=== PATIENT | male | born 1940 | race Caucasian/White ===

== ENCOUNTER 2018-12-04 17:17 | Inpatient (IN) ==
[2018-12-04] MEDS ORDERED: Naloxone 0.4 MG/ML INJ IVP PRN (23:32)
--- NOTE | 2018-12-04 23:38 | Internal Med History&Physical ---
<Gigi Sultana - Last Filed: 12/05/18 05:47> Date of Encounter: 12/05/18 Time of Encounter: 23:38 Internal Medicine - H&P: HPI Chief complaint: blood per rectum History of present illness: Mr. Sam is a 78 year old male who presented to [facility] as a transfer from [facility] on 12/04/18. Initially presented to [facility] ED after a bloody bowel movement after his dialysis session. Reported multiple episodes, and stated that he was unsure if it was bright or dark red in color. He reported associated nausea and one episode of vomiting, and is unsure of what the vomit looked like. He denies any history of rectal bleeding or other GI bleed in the past. He is not currently on any blood thinners. He has never had a colonoscopy. Denied associated rectal or abdominal pain. On arrival to [facility], vital signs were significant for a HR of 114 and a BP of 104/79. EKG showed atrial fibrillation with PVC and left anterior fascicular block. Labs showed a Hgb of 5.1, Na+ 142, K+ 5.1, Ca++ 7.7, Cr 5.40, albumin 2.6. Patient was typed and crossed, and 2U of pRBCs were ordered at [facility]. He was found to be hypotensive with systolic BP in the 70s. He was also given a one-time dose of pantoprazole 40 mg IV. Patient was then transferred to [facility] for further management. On arrival to [facility], labs showed Hgb 6.4, Cr 5.95, troponin 0.04. Type and screen was ordered, as well as 2U pRBCs. A repeat CBC and BMP were drawn later, which showed a drop in Hgb of 6.0. However, it was noted that the K+ had dropped from 5.0 to 2.5. Due to these inconsistencies, I ordered a stat CBC and BMP after his results return. Hgb was found to be 6.7. Patient is still not received blood. Will receive transfusion after type and screen is complete. I had ordered a CT abd/pelv, but patient adamantly refused, stating that the CT makes him claustrophobic. He was offered medication to help with his anxiety, and again adamantly refused. He denies abdominal pain, fever, chills, nausea, vomiting. He has had one bowel movement since his admission, which she states contained a mild amount of blood. No further complaints. Will consult GI for possible scope in the a.m. Medical Hx: HTN, DM, atrial fibrillation, RCC with right-sided nephrectomy in 1999, ESRD on HD MWF Family Hx: HTN Past Med Surg Social Fam HX - Past Medical History Medical history: atrial fibrillation, DVT, diabetes, hyperlipidemia Additional medical history: anemia Psychiatric history: no psych history - Past Surgical History Surgical History: carotid endarterectomy, knee replacement Additional surgical history: Nephrectomy - Social History Smoking Status: Never smoker Smokeless Tobacco Status: No Alcohol use: none Drug use: none - Family History Father Cause of : stomach cancer Mother Cause of : stroke Internal Medicine - H&P: Meds Allergy/AdvReac Type Severity Reaction Status Date / Time No Known Allergies Allergy Verified 12/05/18 15:25 All Systems PM: A 10-system review of systems was performed and is negative for pertinent findings except as documented above in the HPI. - Constitutional Vitals: Temp Pulse Resp BP Pulse Ox 98.6 F 108 19 109/86 100 12/04/18 21:45 12/04/18 22:01 12/04/18 21:45 12/04/18 21:45 12/04/18 21:45 Exam: General: A&O X3, conversant, obese, appears somewhat irritable Head: atraumatic, normocephalic Eye: PERRL, EOMI Neck: Supple, trachea midline Respiratory: CTAB. No accessory muscle use, wheezes, rales, or rhonchi Cardiovascular: tachycardia, irregular rhythm; +S1, +S2; no murmurs, rubs, gallops Abdomen: Soft, nontender, nondistended Extremities: chronic skin changes on b/l lower extremities, L>R Neurological: CN II-XII intact Psychiatric: Normal affect, normal mood Skin: Dry, intact Internal Med - H&P Results - Labs CBC & Chem 7: 12/05/18 02:08 12/05/18 02:08 - Assessment and Plan (1) Acute blood loss anemia Status: Acute Assessment and plan: - Patient presented to [facility] after experiencing a bloody bowel movement - Etiology/location unknown at this time - No prior episodes of GI bleeding - Patient is not sure if his blood was dark or bright red - Received 2U pRBCs at [facility] - Of note, when patient arrived to [facility], I had ordered a CT abd/pelv; patient r efused CT scan due to claustrophobia; was offered medication for anxiety, but again refused Plan - NPO diet - 2U pRBCs have been ordered - Will obtain serial H/H and transfuse as necessary - GI consulted for endoscopy (2) ESRD (end stage renal disease) on dialysis Status: Acute Assessment and plan: - Known history of ESRD MWF - Nephrology consulted (3) Hypertension Status: Acute Assessment and plan: - Holding antihypertensives in the setting of hypotension due to acute blood loss anemia Qualifiers: Qualified Code(s): I10 - Essential (primary) hypertension (4) Diabetes Status: Acute Assessment and plan: - SSI Qualifiers: Qualified Code(s): E11.9 - Type 2 diabetes mellitus without complications (5) Elevated troponin Status: Acute Assessment and plan: - Troponin elevated at 0.04 on presentation - Likely elevated in the setting of demand ischemia and ESRD - Denies active chest pain; no ischemic ST changes seen on EKG - Repeat troponin level ordered to ensure it is adynamic (6) DVT prophylaxis Status: Acute Assessment and plan: - SCDs - Hold heparin in the setting of GI bleed - Time Spent With Patient Total time spent is greater than 50% in coordination of care (as documented) at patient's floor/unit and/or counseling patient: <Sharon Malik - Last Filed: 12/11/18 06:17> Internal Medicine - H&P: HPI History of present illness: Mr. Sam is a 78 year old male All Systems PM: A 10-system review of systems was performed and is negative for pertinent findings except as documented above in the HPI. - Constitutional Vitals: Temp Pulse Resp BP Pulse Ox 97.9 F 99 18 128/85 100 12/07/18 07:29 12/07/18 07:29 12/07/18 07:29 12/07/18 07:29 12/07/18 07:29 Internal Med - H&P Results - Labs CBC & Chem 7: 12/07/18 05:26 12/07/18 05:26 - Impressions ITS Impressions Abdomen/Pelvis CT 12/05/18 01:53 IMPRESSION: 1. No evidence of hematoma or site of hemorrhage 2. Possible cirrhosis 3. Small amount of ascites 4. Perivesical fat stranding suggests possible cystitis 5. Status post right nephrectomy D/ / Kingsley Burr MD / Kingsley Burr MD Interpreting Provider: Kingsley Burr MD - Assessment and Plan (1) Acute blood loss anemia Status: Acute (2) ESRD (end stage renal disease) on dialysis Status: Acute (3) Hypertension Status: Acute Qualifiers: Qualified Code(s): I10 - Essential (primary) hypertension (4) Diabetes Status: Acute Qualifiers: Qualified Code(s): E11.9 - Type 2 diabetes mellitus without complications (5) DVT prophylaxis Status: Acute - Time Spent With Patient Total time spent is greater than 50% in coordination of care (as documented) at patient's floor/unit and/or counseling patient: - Attending Attestation The patient was seen on 12/04 I performed a history and physical examination of the patient and discussed his management with the resident. I reviewed the residents note and agree with the documented findings and plan of care.
[2018-12-05] MEDS: 0.9 % Sodium Chloride 1,000 ML IVC SCH ×2 (00:09→09:38)
[2018-12-05 00:12] LABS: Basophils % 0.3 %; Eosinophils # 0.4 K/mcL (0.0-0.6); Eosinophils % 4.5 %; Hematocrit 19.7 % (37.5-50.1); Hemoglobin 6.4 g/dL (12.9-16.9); Immature Granulocytes % 0.6 % (0-4); Lymphocytes # 1.6 K/mcL (0.6-4.6); Lymphocytes % 17.8 %; Mean Corpuscular HGB Conc 32.5 g/dL (31.6-35.5); Mean Corpuscular Hemoglobin 29.5 pg (28.0-33.3); Mean Corpuscular Volume 90.8 fL (83.0-100.0); Mean Platelet Volume 9.6 fL (9.4-12.4); Monocytes # 0.9 K/mcL (0.0-1.3); Monocytes % 10.4 %; Neutrophils # 5.8 K/mcL (1.6-8.9); Platelet Count 158 K/mcL (140-400); Red Blood Count 2.17 M/mcL (4.19-5.50); Red Cell Distribution Width 16.2 % (11.5-14.5); Segmented Neutrophils % 66.4 %; White Blood Count 8.7 K/mcL (4.3-11.1)
[2018-12-05 00:28] LABS: Calcium 8.1 mg/dL (8.6-10.3)
[2018-12-05 01:08] LABS: Basophils % 0.4 %; Eosinophils # 0.4 K/mcL (0.0-0.6); Eosinophils % 3.7 %; Hematocrit 18.6 % (37.5-50.1); Immature Granulocytes % 0.4 % (0-4); Lymphocytes # 1.9 K/mcL (0.6-4.6); Lymphocytes % 19.1 %; Mean Corpuscular HGB Conc 32.3 g/dL (31.6-35.5); Mean Corpuscular Volume 89.9 fL (83.0-100.0); Monocytes # 1.1 K/mcL (0.0-1.3); Monocytes % 10.6 %; Neutrophils # 6.6 K/mcL (1.6-8.9); Nucleated Red Blood Cells 0.2 /100 WBC (0); Platelet Count 158 K/mcL (140-400); Red Blood Count 2.07 M/mcL (4.19-5.50); Red Cell Distribution Width 16.2 % (11.5-14.5); Segmented Neutrophils % 65.8 %
[2018-12-05 01:16] LABS: INR 1.4; Prothrombin Time 15.6 Seconds (9.4-12.1)
[2018-12-05 01:19] LABS: Activated Partial Thrombo Time 28.8 Seconds (26.0-36.0)
[2018-12-05 02:18] LABS: Basophils # 0.1 K/mcL (0.0-0.2); Basophils % 0.6 %; Eosinophils # 0.5 K/mcL (0.0-0.6); Eosinophils % 4.8 %; Hematocrit 20.4 % (37.5-50.1); Hemoglobin 6.7 g/dL (12.9-16.9); Immature Granulocytes % 0.5 % (0-4); Lymphocytes # 1.9 K/mcL (0.6-4.6); Lymphocytes % 19.2 %; Mean Corpuscular HGB Conc 32.8 g/dL (31.6-35.5); Mean Corpuscular Hemoglobin 29.5 pg (28.0-33.3); Mean Corpuscular Volume 89.9 fL (83.0-100.0); Monocytes % 9.6 %; Neutrophils # 6.5 K/mcL (1.6-8.9); Nucleated Red Blood Cells 0.2 /100 WBC (0); Platelet Count 171 K/mcL (140-400); Red Blood Count 2.27 M/mcL (4.19-5.50); Red Cell Distribution Width 16.4 % (11.5-14.5); Segmented Neutrophils % 65.3 %; White Blood Count 9.9 K/mcL (4.3-11.1)
[2018-12-05 02:38] LABS: Calcium 8.2 mg/dL (8.6-10.3); Potassium 5.9 mEq/L (3.5-5.1)
[2018-12-05] MEDS ORDERED: *HR* Dextrose 50 % in Water (Syg) 50 ML SYRINGE IVP PRN (03:08)
[2018-12-05] MEDS ORDERED: Dextrose Gel 15 GM/37.5 ML TUBE PO PRN ×2 (03:08)
[2018-12-05] MEDS ORDERED: D5% in Water 1,000 ML IVC PRN (03:08)
[2018-12-05] MEDS ORDERED: 0.9 % Sodium Chloride 250 ML ONE (04:15)
[2018-12-05] MEDS: Insulin LISPRO 300 UNITS/3 ML VIAL SQ SCH ×4 (05:20→23:52)
[2018-12-05 07:56] LABS: Hematocrit 20.3 % (37.5-50.1); Hemoglobin 6.7 g/dL (12.9-16.9)
[2018-12-05 08:44] LABS: Hepatitis B Surface Antibody 39.09 mIU/mL
[2018-12-05 08:55] LABS: Hepatitis B Surface Antigen Nonreactive (Nonreactive)
[2018-12-05] MEDS: Pantoprazole 40 MG VIAL IVP SCH ×2 (09:39→18:22)
--- NOTE | 2018-12-05 10:30 | Nephrology Consult Note ---
Date of Encounter: 12/05/18 Time of Encounter: 10:26 Assessment and Plan (1) ESRD (end stage renal disease) on dialysis Current Visit: Yes Status: Acute This is a 78-year-old male with past medical history significant for renal cell carcinoma status post right-sided nephrectomy (1999), end-stage renal disease on hemodialysis (MWF), atrial fibrillation not on any anticoagulation, hypertension, diabetes who initially presented to [facility] due to bloody bowel movements for the past 2 days. - Multiple episodes of bloody stools over the past 2 days - Hemoglobin dropped as low as 5.1; status post multiple units of packed red blood cells including 2 units at [facility] ER and 2 units since patient has been at [facility] - GI on board and consulted. Plan for endoscopy/colonoscopy tomorrow - BUN/Cr = 72/6.09 as of this morning. Undergoing hemodialysis today - K = 5.9 on presentation, repeat this morning K = 5.0. Status post Kayexalate - Patient attends hemodialysis at [facility] on Mondays, Wednesdays, Fridays. 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 Has been on dialysis for the past 4.5 years. Has AV fistula in left upper arm. He is not quite sure, but believes he initially needed dialysis as a complication of diabetes PLAN: Mr. Sam presents to [facility] with acute blood loss anemia. Anemia, blood loss, hypovolemia, hypotension likely contributes to worsening kidney function as of this morning. Likely prerenal acute kidney injury. However, patient is due for hemodialysis today. Vitals are stable enough to proceed with hemodialysis today. - Continue hemodialysis on a Saturday, Saturday, Saturday schedule - Monitor kidney function with daily BMP - Strict I's and O's - Daily weights - Avoid nephrotoxins - Renally dose medications - Renal diet - Monitor for worsening hypertension, especially during hemodialysis and thereafter - Resume normal hemodialysis schedule at time of discharge (2) Hyperkalemia Current Visit: Yes Status: Acute Hyperkalemic = 5.9 on presentation - Repeat K this morning = 5.0 - Status post dose of Kayexalate PLAN: - Continue to monitor with daily BMP - Patient undergoing hemodialysis today - Supportive measures as needed including albuterol, insulin/dextrose, calcium gluconate (3) Acute blood loss anemia Current Visit: Yes Status: Acute Patient presented with acute blood loss anemia, with hemoglobin = 5.1 prior to being transferred to [facility]. Status post transfusion of 2 units of packed red blood cells at [facility] ED, and 2 units packed red blood cells since he has been here - Hemodynamically stable PLAN: - Further management per medical team - GI on board - Plan for endoscopy/colonoscopy tomorrow (4) History of nephrectomy, right Current Visit: No Status: Acute (5) Hx of renal cell carcinoma Current Visit: No Status: Acute History of Present Illness - Reason for Consult Consult date: 12/04/18 end stage renal disease Requesting physician: Gigi Sultana - Chief Complaint Blood per rectum - History of Present Illness This is a 78-year-old male with past medical history significant for renal cell carcinoma status post right-sided nephrectomy (1999), end-stage renal disease on hemodialysis (MW), atrial fibrillation not on any anticoagulation, hypertension, diabetes who initially presented to [facility] due to bloody bowel movements for the past 2 days. Nephrology was consulted due to history of end-stage renal disease on hemodialysis, in the setting of blood loss anemia. Patient initially presented to [facility] with multiple episodes of bloody stools, associated nausea, and one episode of vomiting over the past 2 days. Notes stool was initially bright red in color, but subsequent bowel movements have shown darker maroon blood in stools. No history of previous GI bleeds in the past, and patient is not currently on blood thinners. Additionally, patient never had a colonoscopy. In the [facility] emergency department, patient was tachycardic with low normal blood pressure. Initial labs showed hemoglobin = 5.1. 2 units of packed red blood cells were transfused. Patient was noted to have worsening hypotension with systolic blood pressure = 70s. He was also given one-time dose of IV pantoprazole. He has been transferred to [facility] for further management. Upon arrival to [facility], repeat hemoglobin = 6.7. Two further units of packed red blood cells were ordered, and are in the process of being transfused currently. CT abdomen and pelvis were done which showed no obvious sign of hematoma or hemorrhage. Additionally, potassium was initially noted = 5.9. However, with fluids and dose of Kayexalate this a.m., repeat po tassium = 5.0. Troponin was negative. BNP = 223. Suspected acute GI bleed, gastroenterology was consulted, patient was made nothing by mouth. As of this morning, patient's vital signs have normalized. He has a low normal blood pressure. Has made minimal urine output since arrival. BUN/Cr = 72/6.09. On my examination while patient was undergoing hemodialysis, he was in no acute distress. Doing well with no complaints at this time. Patient is now on clear liquid diet in preparation for endoscopy and colonoscopy tomorrow. Of note, patient attends hemodialysis at [facility] on Mondays, Wednesdays, Fridays. 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 Has been on dialysis for the past 4.5 years. Has AV fistula in left upper arm. He is not quite sure, but believes he initially needed dialysis as a complication of diabetes. Past Med Surg Social Fam HX - Past Medical History Attestation: Yes The following information was validated with the patient. Source: patient, old records reviewed Medical history: atrial fibrillation, DVT, diabetes, hyperlipidemia Additional medical history: anemia Psychiatric history: no psych history - Past Surgical History Surgical History: carotid endarterectomy, knee replacement Additional surgical history: Nephrectomy - Social History Smoking Status: Never smoker Smokeless Tobacco Status: No Alcohol use: none Drug use: none - Family History Father Cause of : stomach cancer Mother Cause of : stroke Medications and Allergies Allergy/AdvReac Type Severity Reaction Status Date / Time No Known Allergies Allergy Verified 12/04/18 21:37 Review of Systems Constitutional: no anorexia, no chills, no fatigue, no headache(s), no lethargy, no malaise, no weakness Nose, mouth and throat: no dizziness, no dry mouth, no headache(s) Cardiovascular: no chest pain, no chest pain at rest, no edema, no irregular heart rhythm, no lightheadedness, no syncope Respiratory: no cough, no dyspnea, no chest congestion Gastrointestinal: hematochezia, loose stools, no abdominal pain, no cramping, no diarrhea, no vomiting Musculoskeletal: no back pain, no myalgias Integumentary: unusual bruising, no dry skin, no rash Neurological: no confusion, no dizziness, no headache(s), no vertigo, no weakness Psychiatric: no anxiety, no behavioral changes, no confusion, no irritability Endocrine: fatigue Hematologic/Lymphatic: no easy bleeding, no easy bruising, no lymphadenopathy Exam - Vital Signs Vital signs: Initial Vital Signs Temp Pulse Resp BP Pulse Ox 99.1 F 110 18 93/69 100 12/04/18 21:00 12/04/18 21:00 12/04/18 21:00 12/04/18 21:00 12/04/18 21:00 Vital Signs - Last 8 Hours Temp Pulse Resp BP Pulse Ox 12/05/18 07:38 98.5 F 104 18 92/42 94 12/05/18 06:21 98.3 F 113 20 105/67 95 12/05/18 04:45 98.5 F 113 20 123/67 97 12/05/18 04:30 98.3 F 113 20 92/72 12/05/18 03:13 98.5 F 117 18 90/66 98 Intake and Output 12/04/18 12/05/18 12/05/18 23:59 07:59 15:59 Intake Total 120 / 120 425 / 425 0 / 425 Output Total 100 / 100 Balance 425 / 425 0 / 425 Intake: IV Fluids 75 / 75 0.9 % Sodium Chloride 1,000 ML 75 / 75 @ 125 mls/hr IVC .Q8H [facility] Rx#: [id number] Oral 120 / 120 0 / 0 Blood Product 350 / 350 Rbcs Leuko Poor As-3 2nd Unit 350 / 350 [id number] Output: Urine 100 / 100 Other: Meal frozen entree after admission NPO Percent of Meal Consumed 100% 0% Stool Size Small Moderate Stool Consistency liquid liquid Stool Color Dark Red Blood Dark Red Blood # Bowel Movements 1 Weight 135.2 kg Blood Glucose* 154 153 - General Appearance General appearance: well-developed, well-nourished, appears started age, obese Exam: Very pleasant 78-year-old male who is resting comfortably during hemodialysis session this morning. EENT: ATNC, PERRL, mucous membranes moist Neck: no JVD, supple Respiratory: wheezing Additional Comments: Mild wheezing noted on exam especially on the left side Cardiology: no murmurs, no rub, no gallops, no edema, regular rate, regular rhythm, normal S1, normal S2 - Dialysis Access Dialysis Vascular Access: Arteriovenous Fistula Additional Comments: Left upper arm Gastrointestinal: normoactive bowel sounds, no tenderness, no guarding, no organomegaly, no masses Integumentary: no rash, warm and dry Additional Comments: Evidence of chronic bruising/discoloration of left lower extremity Neurologic: no focal deficit, alert and oriented x3, strength 5/5, CN 3-12 intact Musculoskeletal: no deformities, no erythema, no cyanosis, no clubbing Psychiatric: mood/affect appropriate, cooperative Results - Lab Results 12/05/18 07:40 12/05/18 11:12 Most recent lab results 12/04/18 12/05/18 23:53 02:08 Calcium 8.1 L 8.2 L Consult Discharge Plan - Plan Referrals: Alexey Thrasher MD [Primary Care Provider] - 12/10/18 10:00 am
[2018-12-05] MEDS ORDERED: 0.9 % Sodium Chloride 250 ML IVC PRN (11:13)
[2018-12-05] MEDS ORDERED: 0.9 % Sodium Chloride 1,000 ML PRIME SCH (11:15)
--- NOTE | 2018-12-05 11:48 | Gastroenterology Consult Note ---
<EloisaAlexey Tavarez - Last Filed: 12/05/18 11:48> Date of Encounter: 12/05/18 Time of Encounter: 10:40 - Time Spent With Patient Total time spent is greater than 50% in coordination of care (as documented) at patient's floor/unit and/or counseling patient: GI History of Present Illness - Data of Consult Patient: new to practice Consult date: 12/05/18 Requesting Physician: Chun Li, DO - Consult Narrative Reason for consult: BRBPR History of present illness: Mr. Sam is a 78 year old male with PMHx of Afib, DVT, DM, HLD, was transferred from [facility] on 12/04/2018 for evaluation of rectal bleeding. Pt reported rectal bleeding began Saturday night with bright red blood per rectum and worsened on and changed to darker red blood per rectum. On arrival to [facility] ED Hgb 5.1 and PRBC ordered. He was transferred here for further evaluation. On arrival, Hgb 6.4 and 2 units PRBC ordered. Hgb this AM 6.7. Pt did refuse CT at first due to claustrophobia and then agreed to have procedure done. CT showed no evidence of hematoma or site of hemorrhage, possible cirrhosis, small amount of ascites. He denies any family history of colon cancer. He has never had colonoscopy. He denies fever, chills, chest pain, shortness of breath, abdominal pain, nausea, vomiting, melena. Procedures: None NSAIDs: None Anticoagulation: None A/P 1. BRBPR: Patient with BRBPR and dark red blood per rectum. Symptoms have improved since . Plan for EGD and colonsocopy tomorrow. Clear liquid diet today, no red or purple. NPO at midnight. If not clear by 6 AM, give 2 tap water enemas. 2. Anemia: Secondary to rectal bleeding. On arrival to [facility] ED Hgb 5.1. On arrival, Hgb 6.4 and 2 units PRBC ordered. Hgb this AM 6.7. Two units PRBC have been ordered. Continue to monitor CBC and transfuse PRBC as needed. Plan for EGD and colonoscopy tomorrow morning. Clear liquid diet today, no red or purple. NPO at midnight. If not clear by 6 AM, give 2 tap water enemas. Past Med Surg Social Fam HX - Past Medical History Medical history: atrial fibrillation, DVT, diabetes, hyperlipidemia Additional medical history: anemia Psychiatric history: no psych history - Past Surgical History Surgical History: carotid endarterectomy, knee replacement Additional surgical history: Nephrectomy - Social History Smoking Status: Never smoker Smokeless Tobacco Status: No Alcohol use: none Drug use: none - Family History Father Cause of : stomach cancer Mother Cause of : stroke - Gastrointestinal Gastrointestinal: Present: as per HPI - Constitutional Constitutional: as per HPI - EENT Eyes: as per HPI Ears: Present: as per HPI Nose, mouth and throat: Present: as per HPI - Cardiovascular Cardiovascular ROS: Present: as per HPI - Respiratory Respiratory IM: Present: as per HPI - Genitourinary Genitourinary: Absent: change in color, Urinary frequency - Neurological ROS Neurological GI: Present: as per HPI - Hematologic/Lymphatic Hematologic/Lymphatic pediatric: Present: as per HPI - Musculoskeletal Musculoskeletal ROS GI: Present: as per HPI - Integumentary Integumentary GI: Present: as per HPI - Psychiatric ROS Psychiatric GI: Present: as per HPI - Endocrine Endocrine IM: Present: as per HPI - Constitutional Vitals: Temp Pulse Resp BP Pulse Ox 97.7 F 110 18 93/59 95 12/05/18 11:35 12/05/18 11:35 12/05/18 11:35 12/05/18 11:35 12/05/18 11:35 General appearance: Present: cooperative, A&O X 3, no acute distress, answers questions appropriately - Head Head exam: Present: atraumatic, normocephalic - Eye Eye exam: Present: normal appearance, sclera anicteric - ENT ENT exam: Present: mucous membranes moist - Neck Neck exam general surgery: Present: normal inspection, trachea midline - Respiratory Respiratory exam: Present: CTAB. Absent: rales, rhonchi, wheezes - Cardiovascular Cardiovascular exam: Present: RRR, +S1, +S2 - GI/Abdominal GI/Abdominal exam: Present: soft, no peritoneal signs. Absent: distended, firm, guarding, tenderness - Rectal Rectal exam: Present: deferred - Extremities Exam Extremities exam: Present: warm - Neurological Exam Neurological exam: Present: no focal deficits - Psychiatric Psychiatric exam: Present: normal affect, normal mood - Skin Skin exam: Present: dry, intact, normal color, warm Results - Labs CBC & Chem 7: 12/05/18 07:40 12/05/18 08:06 Labs: Last Result 12/04/18 12/04/18 12/05/18 23:53 23:53 02:08 Calcium 8.1 L 8.2 L Troponin I 0.04 H* 12/05/18 07:40 Calcium Troponin I 0.04 H* Entire Visit 12/04/18 12/04/18 12/05/18 23:53 23:53 00:54 Hgb 6.4 L 6.0 L* Hct 19.7 L 18.6 L PT Lipase 74 12/05/18 12/05/18 12/05/18 00:54 02:08 07:40 Hgb 6.7 L 6.7 L Hct 20.4 L 20.3 L PT 15.6 H Lipase - ABG ABG results: PT/INR, D-dimer PT 15.6 Seconds (9.4-12.1) H 12/05/18 00:54 - Impressions Impressions Abdomen/Pelvis CT 12/05/18 01:53 IMPRESSION: 1. No evidence of hematoma or site of hemorrhage 2. Possible cirrhosis 3. Small amount of ascites 4. Perivesical fat stranding suggests possible cystitis 5. Status post right nephrectomy D/ / Kingsley Burr MD / Kingsley Burr MD Interpreting Provider: Kingsley Burr MD Consult Discharge Plan - Plan Referrals: Alexey Thrasher MD [Primary Care Provider] - 12/10/18 10:00 am <Richard Cheng - Last Filed: 12/06/18 08:19> Date of Encounter: 12/05/18 - Time Spent With Patient Total time spent is greater than 50% in coordination of care (as documented) at patient's floor/unit and/or counseling patient: GI History of Present Illness - Data of Consult Requesting Physician: Chun Li DO - Consult Narrative History of present illness: Mr. Sam is a 78 year old morbidly obese male with multiple comorbidities on hemodialysis (last one yesterday) comes in with combination of melena and hematochezia. Heoglobin at initial presentation was 5.1 gm% at [facility]. CT of abdomen suggested cirrhosis with some ascites. Has never had EGD or colonoscopy. Etiology of GI bleeding multifactorial. Plan EGD and colonscopy on the morning of the at 8 am I have personally performed a face to face evaluation on this patient. I have reviewed and agree with the care plan. History and Exam by me shows: - Constitutional Vitals: Temp Pulse Resp BP Pulse Ox 98.3 F 107 18 106/70 92 12/06/18 03:07 12/06/18 03:07 12/06/18 03:07 12/06/18 03:07 12/06/18 03:07 Results - Labs CBC & Chem 7: 12/06/18 01:06 12/06/18 01:06 Labs: Last Result 12/05/18 12/06/18 19:35 01:06 Calcium 8.2 L 8.1 L Entire Visit 12/05/18 12/06/18 22:38 01:06 Hgb 7.3 L 7.5 L Hct 22.1 L 22.9 L - ABG ABG results: PT/INR, D-dimer PT 15.6 Seconds (9.4-12.1) H 12/05/18 00:54 - Impressions Impressions Abdomen/Pelvis CT 12/05/18 01:53
--- NOTE | 2018-12-05 12:45 | Internal Med Progress Note ---
Hospitalist Progress Note - Encounter Date of Encounter: 12/05/18 Time of Encounter: 09:00 - Subjective Interval History: Transfused PRBC overnight - Exam Vitals: Temp Pulse Resp BP Pulse Ox 97.7 F 110 18 93/59 95 12/05/18 11:35 12/05/18 11:35 12/05/18 11:35 12/05/18 11:35 12/05/18 11:35 Exam: General: A&O X3, conversant, obese, appears somewhat irritable Head: atraumatic, normocephalic Eye: PERRL, EOMI Neck: Supple, trachea midline Respiratory: CTAB. No accessory muscle use, wheezes, rales, or rhonchi Cardiovascular: tachycardia, irregular rhythm; +S1, +S2; no murmurs, rubs, gallops Abdomen: Soft, nontender, nondistended Extremities: chronic skin changes on b/l lower extremities, L>R Neurological: CN II-XII intact Psychiatric: Normal affect, normal mood Skin: Dry, intact - Assessment and Plan (1) Acute blood loss anemia Current Visit: Yes Status: Acute Assessment and Plan: Pt comes in with acute blood loss anemia 2/2 to GI bleed. complains of both dark and bright red blood per rectum On protonix BID. GI consult and plan for EGD and colonoscopy in am Transfuse 2 units PRBC today (2) Diabetes Current Visit: Yes Status: Acute Assessment and Plan: Continue insulin and monitor fingersticks (3) ESRD (end stage renal disease) on dialysis Current Visit: Yes Status: Acute Assessment and Plan: Resume dialysis as tolerated (4) Hypertension Current Visit: Yes Status: Acute Assessment and Plan: Hold BP meds (5) DVT prophylaxis Current Visit: Yes Status: Acute Assessment and Plan: SCDs - Time Spent with Patient Total time spent is greater than 50% in coordination of care (as documented) at patient's floor/unit and/or counseling patient: Internal Medicine: Result - Labs CBC & Chem 7: 12/05/18 07:40 12/05/18 08:06 Labs: Short CBC 12/04/18 12/05/18 12/05/18 Range/Units 23:53 00:54 02:08 WBC 8.7 10.0 9.9 (4.3-11.1) K/mcL Hgb 6.4 L 6.0 L* 6.7 L (12.9-16.9) g/dL Hct 19.7 L 18.6 L 20.4 L (37.5-50.1) % Plt Count 158 158 171 (140-400) K/mcL Neutrophils # 5.8 6.6 6.5 (1.6-8.9) K/mcL 12/05/18 Range/Units 07:40 WBC (4.3-11.1) K/mcL Hgb 6.7 L (12.9-16.9) g/dL Hct 20.3 L (37.5-50.1) % Plt Count (140-400) K/mcL Neutrophils # (1.6-8.9) K/mcL BMP 12/04/18 12/05/18 12/05/18 23:53 02:08 08:06 Sodium 136 139 Potassium 5.0 5.9 H 5.0 Chloride 99 98 Carbon Dioxide 28 29 BUN 71 H 72 H Creatinine 5.95 H 6.09 H Glucose 156 H 164 H Calcium 8.1 L 8.2 L Cardiac Enzymes 12/04/18 12/05/18 Range/Units 23:53 07:40 Troponin I 0.04 H* 0.04 H* (< 0.04) ng/mL - ABG Interpretation ABG results: PT/INR, D-dimer PT 15.6 Seconds (9.4-12.1) H 12/05/18 00:54 - Impressions Impressions Abdomen/Pelvis CT 12/05/18 01:53 IMPRESSION: 1. No evidence of hematoma or site of hemorrhage 2. Possible cirrhosis 3. Small amount of ascites 4. Perivesical fat stranding suggests possible cystitis 5. Status post right nephrectomy D/ / Kingsley Burr MD / Kingsley Burr MD Interpreting Provider: Kingsley Burr MD Consult Discharge Plan - Plan Referrals: Alexey Thrasher MD [Primary Care Provider] - 12/10/18 10:00 am (2) Diabetes Qualifiers: Qualified Code(s): E11.9 - Type 2 diabetes mellitus without complications (4) Hypertension Qualifiers: Qualified Code(s): I10 - Essential (primary) hypertension
[2018-12-05] MEDS ORDERED: SODIUM CHLORIDE/NAHCO3/KCL/PEG 4,000 ML SOLN.RECON PO ONE (17:00)
[2018-12-05 17:20] LABS: Hemoglobin 7.7 g/dL (12.9-16.9)
[2018-12-05 20:13] LABS: Calcium 8.2 mg/dL (8.6-10.3); Potassium 3.8 mEq/L (3.5-5.1)
[2018-12-05 22:51] LABS: Hematocrit 22.1 % (37.5-50.1); Hemoglobin 7.3 g/dL (12.9-16.9)
[2018-12-06 01:18] LABS: Basophils # 0.1 K/mcL (0.0-0.2); Basophils % 0.7 %; Eosinophils # 0.5 K/mcL (0.0-0.6); Eosinophils % 6.1 %; Hematocrit 22.9 % (37.5-50.1); Hemoglobin 7.5 g/dL (12.9-16.9); Immature Granulocytes % 0.8 % (0-4); Lymphocytes # 2.1 K/mcL (0.6-4.6); Lymphocytes % 24.7 %; Mean Corpuscular HGB Conc 32.8 g/dL (31.6-35.5); Mean Corpuscular Hemoglobin 29.5 pg (28.0-33.3); Mean Corpuscular Volume 90.2 fL (83.0-100.0); Mean Platelet Volume 9.3 fL (9.4-12.4); Monocytes # 0.9 K/mcL (0.0-1.3); Nucleated Red Blood Cells 0.6 /100 WBC (0); Platelet Count 148 K/mcL (140-400); Red Blood Count 2.54 M/mcL (4.19-5.50); Red Cell Distribution Width 16.1 % (11.5-14.5); Segmented Neutrophils % 57.7 %; White Blood Count 8.6 K/mcL (4.3-11.1)
[2018-12-06 01:38] LABS: Calcium 8.1 mg/dL (8.6-10.3); Magnesium 1.8 mg/dL (1.6-2.6); Phosphorous 3.4 mg/dL (2.7-4.5); Potassium 4.2 mEq/L (3.5-5.1)
[2018-12-06] MEDS: Pantoprazole 40 MG VIAL IVP SCH ×2 (05:38→18:39)
[2018-12-06] MEDS: Insulin LISPRO 300 UNITS/3 ML VIAL SQ SCH ×4 (05:56→23:42)
[2018-12-06] MEDS ORDERED: Propofol 500 MG/50 ML INFUS..BTL ONE (07:30)
[2018-12-06] MEDS ORDERED: Lidocaine -MPF 2% 2 ML VIAL ONE (07:30)
--- NOTE | 2018-12-06 07:35 | Anesthesia Evaluation PreOp ---
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 HX Other Medical History: Renal (ESRD, HD MWF, POST NEPHRECTOMY FOR RCC), Bleeding (GI BLEEDING, HB 7.5 POST PRBC X3), Other (OBESITY) Anesthesia History: No Prior Anesthetic Complications, Past Anesthesia Alcohol Use: none Drug use: none Medications and Allergies No Known Home Drugs 12/05/18 [History] Allergy/AdvReac Type Severity Reaction Status Date / Time No Known Allergies Allergy Verified 12/05/18 15:25 - Meds/Allergy Pre-op Review Medications Reviewed: Yes Allergies Reviewed: Yes Anesthesia Results - Labs 12/06/18 01:06 12/06/18 01:06 Anesthesia Exam Vital Signs/O2 Sat/Glucose, Most Recent Temp Pulse Resp BP Pulse Ox 98.3 F 107 18 106/70 92 12/06/18 03:07 12/06/18 03:07 12/06/18 03:07 12/06/18 03:07 12/06/18 03:07 Blood Glucose* 111 Weight: 138 KG - BMI 38 NPO (# of Hours): 8 - HEENT Teeth: Edentulous Denture Type: Upper: Complete - Cardiac Rhythm: Irregular - Pulmonary Breath Sounds: bilateral Clear Anesthesia Assess/Plan ASA Score: 4 Anesthetic Plan: MAC Monitoring Plan: Standard Monitors Recovery Plan: PACU (PHASE 2 IF APPROPRIATEF)
--- NOTE | 2018-12-06 07:58 | Internal Med Progress Note ---
Hospitalist Progress Note - Encounter Date of Encounter: 12/06/18 Time of Encounter: 08:00 - Subjective Interval History: No acute events overnight - Exam Vitals: Temp Pulse Resp BP Pulse Ox 98.3 F 107 18 106/70 92 12/06/18 03:07 12/06/18 03:07 12/06/18 03:07 12/06/18 03:07 12/06/18 03:07 Exam: General: A&O X3, conversant, obese, appears somewhat irritable Head: atraumatic, normocephalic Eye: PERRL, EOMI Neck: Supple, trachea midline Respiratory: CTAB. No accessory muscle use, wheezes, rales, or rhonchi Cardiovascular: tachycardia, irregular rhythm; +S1, +S2; no murmurs, rubs, gallops Abdomen: Soft, nontender, nondistended Extremities: chronic skin changes on b/l lower extremities, L>R Neurological: CN II-XII intact Psychiatric: Normal affect, normal mood Skin: Dry, intact - Assessment and Plan (1) Acute blood loss anemia Current Visit: Yes Status: Acute Assessment and Plan: Pt comes in with acute blood loss anemia 2/2 to GI bleed. complains of both dark and bright red blood per rectum On protonix BID. GI consult and plan for EGD and colonoscopy in am Transfuse 2 units PRBC overnight. S/p EGD and clonoscopy showing non bleeding ulcer and grad 2 hemorrhoids. Restart liquid diet. Monitor hemoglobin (2) Diabetes Current Visit: Yes Status: Acute Assessment and Plan: Continue insulin and monitor fingersticks (3) ESRD (end stage renal disease) on dialysis Current Visit: Yes Status: Acute Assessment and Plan: Resume dialysis as tolerated (4) Hypertension Current Visit: Yes Status: Acute Assessment and Plan: Hold BP meds (5) DVT prophylaxis Current Visit: Yes Status: Acute Assessment and Plan: SCDs - Time Spent with Patient Total time spent is greater than 50% in coordination of care (as documented) at patient's floor/unit and/or counseling patient: Internal Medicine: Result - Labs CBC & Chem 7: 12/06/18 01:06 12/06/18 01:06 Labs: Short CBC 12/05/18 12/05/18 12/05/18 Range/Units 07:40 16:45 22:38 WBC (4.3-11.1) K/mcL Hgb 6.7 L 7.7 L 7.3 L (12.9-16.9) g/dL Hct 20.3 L 23.0 L 22.1 L (37.5-50.1) % Plt Count (140-400) K/mcL Neutrophils # (1.6-8.9) K/mcL 12/06/18 Range/Units 01:06 WBC 8.6 (4.3-11.1) K/mcL Hgb 7.5 L (12.9-16.9) g/dL Hct 22.9 L (37.5-50.1) % Plt Count 148 (140-400) K/mcL Neutrophils # 5.0 (1.6-8.9) K/mcL BMP 12/05/18 12/05/18 12/05/18 08:06 11:12 19:35 Sodium 136 Potassium 5.0 5.0 3.8 Chloride 96 L Carbon Dioxide 31 H BUN 34 H Creatinine 3.82 H Glucose 154 H Calcium 8.2 L 12/06/18 01:06 Sodium 134 L Potassium 4.2 Chloride 96 L Carbon Dioxide 30 H BUN 35 H Creatinine 4.20 H Glucose 124 H Calcium 8.1 L Cardiac Enzymes 12/05/18 Range/Units 07:40 Troponin I 0.04 H* (< 0.04) ng/mL - ABG Interpretation ABG results: PT/INR, D-dimer PT 15.6 Seconds (9.4-12.1) H 12/05/18 00:54 - Impressions Impressions Abdomen/Pelvis CT 12/05/18 01:53 IMPRESSION: 1. No evidence of hematoma or site of hemorrhage 2. Possible cirrhosis 3. Small amount of ascites 4. Perivesical fat stranding suggests possible cystitis 5. Status post right nephrectomy D/ / Kingsley Burr MD / Kingsley Burr MD Interpreting Provider: Kingsley Burr MD Consult Discharge Plan - Plan Referrals: Alexey Thrasher MD [Primary Care Provider] - 12/10/18 10:00 am (2) Diabetes Qualifiers: Qualified Code(s): E11.9 - Type 2 diabetes mellitus without complications (4) Hypertension Qualifiers: Qualified Code(s): I10 - Essential (primary) hypertension
[2018-12-06] MEDS: 0.9 % Sodium Chloride 1,000 ML IVC SCH (08:18)
[2018-12-06] MEDS ORDERED: *HR* PHENYLEPHRINE 1,000 MCG/10 ML SYRINGE IVP ONE (08:40)
--- NOTE | 2018-12-06 11:06 | Nephrology Progress Note ---
Date of Encounter: 12/06/18 Time of Encounter: 11:06 Objective - Vital Signs Vital signs: Vital Signs Temp Pulse Resp BP Pulse Ox 12/06/18 08:15 98.0 F 95 16 107/70 99 12/06/18 03:07 98.3 F 107 18 106/70 92 12/05/18 23:43 98.4 F 99 17 101/57 99 12/05/18 21:25 97.8 F 101 19 95/52 100 12/05/18 16:42 101 18 115/71 98 12/05/18 16:00 97.4 F L 17 108/66 12/05/18 15:45 108/63 12/05/18 15:30 100/62 12/05/18 15:15 97.4 F L 99 16 99/57 12/05/18 15:00 113/77 12/05/18 14:47 97.3 F L 94 17 95/55 12/05/18 14:45 95/55 12/05/18 14:32 97.6 F 94 15 93/57 12/05/18 14:30 93/57 12/05/18 14:15 97.5 F L 89 16 107/47 12/05/18 14:00 134/54 12/05/18 13:45 98.2 F 94 17 121/73 12/05/18 13:30 98.4 F 101 17 121/73 12/05/18 13:15 123/73 12/05/18 13:00 98/40 12/05/18 12:45 94/65 12/05/18 12:30 108/56 12/05/18 12:15 98.5 F 19 101/66 12/05/18 11:35 97.7 F 110 18 93/59 95 Intake and Output 12/05/18 12/06/18 12/06/18 23:59 07:59 15:59 Intake Total 480 / 2805 Output Total 1830 Balance -1351 / 974 Intake: Oral 480 / 480 Output: Urine 0 / 0 Total Dialysis (HD) Output 1830 Other: Meal Dinner Stool Size Moderate Stool Consistency liquid Stool Color Dark Red Blood # Voids 2 # Bowel Movements 3 Weight 137.7 kg Blood Glucose* 131 111 Hemodialysis Net Fluid Removed 631 (mL) Patient Weight 12/06/18 23:59 Weight 137.7 kg - Lab 12/06/18 01:06 12/06/18 01:06 Most recent lab results 12/06/18 01:06 Calcium 8.1 L Phosphorus 3.4 Magnesium 1.8 Consult Discharge Plan - Plan Referrals: Alexey Thrasher MD [Primary Care Provider] - 12/10/18 10:00 am
[2018-12-06 12:49] LABS: Hematocrit 22.5 % (37.5-50.1); Hemoglobin 7.3 g/dL (12.9-16.9)
[2018-12-06] MEDS ORDERED: 0.9 % Sodium Chloride 250 ML ONE (15:03)
[2018-12-06] MEDS ORDERED: Iron Sucrose Complex 400 MG in 0.9 % Sodium Chloride 250 ML IVPB ONE (15:26)
--- NOTE | 2018-12-06 16:25 | Electrocardiograph Report ---
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
[2018-12-06 20:05] LABS: Hematocrit 26.4 % (37.5-50.1); Hemoglobin 8.4 g/dL (12.9-16.9)
[2018-12-07] MEDS: 0.9 % Sodium Chloride 1,000 ML IVC SCH (05:07)
[2018-12-07 05:39] LABS: Basophils # 0.1 K/mcL (0.0-0.2); Basophils % 0.8 %; Eosinophils # 0.5 K/mcL (0.0-0.6); Eosinophils % 7.4 %; Hematocrit 24.9 % (37.5-50.1); Immature Granulocytes % 0.5 % (0-4); Lymphocytes # 1.9 K/mcL (0.6-4.6); Lymphocytes % 30.6 %; Mean Corpuscular HGB Conc 32.1 g/dL (31.6-35.5); Mean Corpuscular Hemoglobin 29.5 pg (28.0-33.3); Mean Corpuscular Volume 91.9 fL (83.0-100.0); Mean Platelet Volume 9.3 fL (9.4-12.4); Monocytes # 0.7 K/mcL (0.0-1.3); Monocytes % 11.5 %; Neutrophils # 3.1 K/mcL (1.6-8.9); Nucleated Red Blood Cells 0.3 /100 WBC (0); Platelet Count 163 K/mcL (140-400); Red Blood Count 2.71 M/mcL (4.19-5.50); Red Cell Distribution Width 16.4 % (11.5-14.5); Segmented Neutrophils % 49.2 %; White Blood Count 6.2 K/mcL (4.3-11.1)
[2018-12-07 05:59] LABS: Magnesium 1.9 mg/dL (1.6-2.6); Potassium 4.3 mEq/L (3.5-5.1)
[2018-12-07] MEDS: Insulin LISPRO 300 UNITS/3 ML VIAL SQ SCH (06:18)
[2018-12-07] MEDS: Pantoprazole 40 MG VIAL IVP SCH (06:30)
[2018-12-07 07:33] VITALS: BP 128/85
--- NOTE | 2018-12-07 08:54 | Discharge Summary ---
Date of Encounter: 12/07/18 Time of Encounter: 08:00 - Discharge Diagnosis (1) Acute blood loss anemia Priority: Primary Status: Acute Assessment and Plan: 78 year old male who presented to [facility] as a transfer from [facility] on 12/04/18. Initially presented to [facility] ED after a bloody bowel movement after his dialysis session. Reported multiple episodes, and stated that he was unsure if it was bright or dark red in color. He reported associated nausea and one episode of vomiting, and is unsure of what the vomit looked like. He denies any history of rectal bleeding or other GI bleed in the past. He is not c urrently on any blood thinners. He has never had a colonoscopy. Denied associated rectal or abdominal pain. On arrival to [facility], vital signs were significant for a HR of 114 and a BP of 104/79. EKG showed atrial fibrillation with PVC and left anterior fascicular block. Labs showed a Hgb of 5.1, Na+ 142, K+ 5.1, Ca++ 7.7, Cr 5.40, albumin 2.6. Patient was typed and crossed, and 2U of pRBCs were ordered at [facility]. He was found to be hypotensive with systolic BP in the 70s. He was also given a one-time dose of pantoprazole 40 mg IV. Patient was then transferred to [facility] for further management. He was assessed with acute blood loss anemia 2/2 to GI bleed. He complained of both dark and bright red blood per rectum and he was started on protonix BID and was transfused a total of 4 units PRBC . He was seen by GI and had an EGD and colonoscopy showing non bleeding ulcer and grad 2 hemorrhoids. He was monitored for 24 hrs after procedure and his hemoglobin was stable. he was discharged on a course of PPI He also had frequent PVCs intermittently and it was discussed with him he'll follow up outpatient with cardiology for workup. He had a doppler of lower extremity showing changes suggestive of chronic DVT. Anticoagulation is contraindicated at this point due to his acute GI bleed. he has been counseled to f/u with his PCP. 35 minutes was spent discharging this patient (2) Diabetes Priority: Primary Status: Acute Qualifiers: Qualified Code(s): E11.9 - Type 2 diabetes mellitus without complications (3) ESRD (end stage renal disease) on dialysis Priority: Primary Status: Acute (4) Hypertension Priority: Primary Status: Acute Qualifiers: Qualified Code(s): I10 - Essential (primary) hypertension (5) DVT prophylaxis Priority: Primary Status: Acute Hospital course: Mr. Sam is a 78 year old male - Time Spent with Patient Total time spent providing and/or coordinating discharge services: - Discharge Medications Prescriptions: New Omeprazole [PriLOSEC] 40 mg PO BID 30 Days #60 cap Home Medications: Omeprazole [PriLOSEC] 40 mg PO BID 30 Days #60 cap 12/07/18 [Rx] Allergies/Adverse Reactions: Allergy/AdvReac Type Severity Reaction Status Date / Time No Known Allergies Allergy Verified 12/05/18 15:25 Date of admission: 12/05/18 11:28 Primary care physician: Alexey Thrasher MD Consults: 12/04/18 23:36 Consult to Gastroenterology [CONS] Routine Consulting Provider: [facility] [place] Reason for Consult: Bright red blood per rectum causing acute blood loss anemia Call Completed: No 12/04/18 23:37 Consult to Nephrology [CONS] Routine Consulting Provider: [facility]/IAM/OSMEL/NAT Reason for Consult: ESRD on dialysis Call Completed: No 12/05/18 11:15 Consult to Dialysis [CONS] ONCE - Constitutional Vitals: Temp Pulse Resp BP Pulse Ox 97.9 F 99 18 128/85 100 12/07/18 07:29 12/07/18 07:29 12/07/18 07:29 12/07/18 07:29 12/07/18 07:29 Exam: General: A&O X3, conversant, obese, appears somewhat irritable Head: atraumatic, normocephalic Eye: PERRL, EOMI Neck: Supple, trachea midline Respiratory: CTAB. No accessory muscle use, wheezes, rales, or rhonchi Cardiovascular: tachycardia, irregular rhythm; +S1, +S2; no murmurs, rubs, gallops Abdomen: Soft, nontender, nondistended Extremities: chronic skin changes on b/l lower extremities, L>R Neurological: CN II-XII intact Psychiatric: Normal affect, normal mood Skin: Dry, intact - Patient Status Disposition: Home, Self-Care - Discharge Instructions Follow Up With: Alexey Thrasher MD [Primary Care Provider] - 12/10/18 10:00 am (Patient informed to mollyulde a follow up visit with their primary care provider. )
--- NOTE | 2018-12-07 10:50 | Nephrology Progress Note ---
Date of Encounter: 12/07/18 Time of Encounter: 10:50 - Assessment and Plan (1) ESRD (end stage renal disease) on dialysis Status: Acute HD MWF. No acute need for dialysis. Renal dose medications. Renal diet. Subjective Principal diagnosis: esrd Interval history: Patient seen. No new complaint. ROS stable Objective - Vital Signs Vital signs: Vital Signs Temp Pulse Resp BP Pulse Ox 12/07/18 07:29 97.9 F 99 18 128/85 100 12/07/18 04:24 97.6 F 101 19 107/73 97 12/07/18 00:32 98.2 F 98 19 101/66 95 12/06/18 19:49 97.7 F 93 21 117/71 95 12/06/18 18:27 98 F 90 16 106/66 12/06/18 17:12 97.9 F 98 20 116/64 96 12/06/18 16:38 98.2 F 86 14 107/58 100 12/06/18 16:23 97.6 F 86 14 100/63 100 12/06/18 14:02 111 110/63 12/06/18 11:18 98.0 F 99 18 89/65 97 Intake and Output 12/06/18 12/07/18 12/07/18 23:59 07:59 15:59 Intake Total 1548 / 1548 Output Total 100 / 100 Balance 1448 / 1448 Intake: IV Fluids 270 / 270 Venofer 400 MG In 0.9 % Sodium 270 / 270 Chloride 250 ML @ 120 mls/hr IVPB ONCE ONE Rx#:[id number] Oral 1000 / 1000 Blood Product 278 / 278 Rbcs Leuko Poor As-3 2nd Unit 278 / 278 [id number] Output: Urine/Stool Mix 100 / 100 Other: Meal Dinner Percent of Meal Consumed 100% Stool Size Moderate Stool Consistency liquid Stool Color Green Weight 142 kg Blood Glucose* 86 101 Patient Weight 12/07/18 23:59 Weight 142 kg - General Appearance General appearance: Present: well-developed, well-nourished EENT: Present: ATNC Cardiology: Present: regular rate Musculoskeletal: Present: no cyanosis - Lab 12/07/18 05:26 12/07/18 05:26 Most recent lab results 12/07/18 05:26 Calcium 8.0 L Phosphorus 5.0 H Magnesium 1.9 Consult Discharge Plan - Plan Referrals: Thrasher,Alexey, MD [Primary Care Provider] - 12/10/18 10:00 am (Patient informed to mollyulde a follow up visit with their primary care provider. ) Prescriptions: Omeprazole [PriLOSEC] 40 mg PO BID 30 Days #60 cap
--- NOTE | 2018-12-07 12:43 | Electrocardiograph Report ---
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
== END 2018-12-07 10:57 | disposition home or self-care (01) | DRG 377 ==
LOC: 2NNU → 2ANU 12-06 12:26
PROVIDERS: ADMIT Internal Medicine; ATTEND Internal Medicine